=== PATIENT | male | born 1955 | race Caucasian/White ===

== ENCOUNTER → 2018-03-01 10:08 | Outpatient (CLI) | payer BC, SELFPAY ==
--- NOTE | 2018-03-01 10:09 | DI.REPORT_ITS ---
SYMPTOM/DIAGNOSIS: RT WRIST PAIN, MOST PAINFUL AT DISTAL ULNA. RT WRIST SPRAIN S63.501A RIGHT WRIST: Three views. No priors. No bone or joint abnormality is identified. There does appear to be some soft tissue swelling about the medial aspect of the wrist. No radiopaque foreign bodies are seen in the soft tissues. IMPRESSION: Mild soft tissue swelling. No acute fracture or dislocation.
== END ==
PROVIDERS: PCP Nurse Practitioner; Visit Provider Family Medicine
DX: S63.501A Unspecified sprain of right wrist, initial encounter (principal)
CPT/HCPCS: 73110

== ENCOUNTER 2018-04-16 13:49 | Outpatient (CLI) | payer BC, SELFPAY ==
--- NOTE | 2018-04-16 11:10 | DI.RAD_ITS ---
SYMPTOMS/DIAGNOSIS: ONE MONTH OF WRIST PAIN, SPRAIN OF RIGHT WRIST, S63.766A RECHECK FOR SUBTLE FRACTURE RIGHT WRIST: Multiple views. No evidence of an acute or healing fracture or dislocation is identified. The soft tissues are unremarkable. IMPRESSION: No acute abnormality.
== END 2018-04-16 14:09 ==
PROVIDERS: PCP Nurse Practitioner; Visit Provider Family Medicine
DX: M25.531 Pain in right wrist (principal); S63.501D Unspecified sprain of right wrist, subsequent encounter
CPT/HCPCS: 73110

== ENCOUNTER 2018-06-26 12:22 | Day surgery (SDC) | payer BC, SELFPAY ==
[2018-06-26 12:34] VITALS: BP 124/78; PULSE 66; RESP 20; TEMP 36.8; O2SAT 20
[2018-06-26] MEDS: Lactated Ringers 1,000 ML 80 ML IV (12:57)
--- NOTE | 2018-06-26 14:16 | W.PM.DSUDISC ---
Discharge Plan Disposition Patient Disposition: HOME Condition: Good Discharge Details Reason For Visit: surgery L wrist Attending Provider: Estiven Baker Primary Care Provider: Joel Aguero Home Meds and New Rx's Prescriptions: New hydrocodone-acetaminophen 5-325 mg tablet 1 tab PO Q6H PRN (Reason: pain) Qty: 10 RF: 0 Continue loekkca-smfwzroeihstc-klwgfgsn [Excedrin Migraine] 1 EACH tablet 2 tab PO PRN PRNRF: 0 Discharge Instructions Additional Instructions: Elevate R hand above heart level as much as possible overnite tonite. Wiggle fingers R hand 10 times/hour when awake to prevent swelling. Keep splint and dressings dry and intact. Use R hand as much as discomfort allows. Follow up in 's office in one week. Stand Alone Forms: DSU Post op Instructions, Adrienne Lewis (DSU) Referrals: Estiven Baker MD [ [facility] STAFF PHYSICIAN] - (f/u in one week.) Equipment/Supplies: Splint Activity:: Activity as Tolerated Remove Dressings/Wound Care:: Do Not Remove Shower/Bathe:: Cover Diet:: As Tolerated Discharge Orders Discharge Orders: Discharge Order (Routine); Ordered 06/26/18 Ordered By: Estiven Baker DS: Diagnosis Discharge Diagnosis (1) Subluxation/dislocation ECU (extensor carpi ulnaris) tendon: Status: Acute
--- NOTE | 2018-06-26 14:20 | PDOC.DSDIS_ITS ---
Discharge Plan Disposition Patient Disposition: HOME Condition: Good Discharge Details Reason For Visit: surgery L wrist Attending Provider: Estiven Baker Primary Care Provider: Joel Aguero Home Meds and New Rx's Prescriptions: New hydrocodone-acetaminophen 5-325 mg tablet 1 tab PO Q6H PRN (Reason: pain) Qty: 10 RF: 0 Continue cuqswnp-xomilnnyzgybr-fclfrnnt [Excedrin Migraine] 1 EACH tablet 2 tab PO PRN PRNRF: 0 Discharge Instructions Additional Instructions: Elevate R hand above heart level as much as possible overnite tonite. Wiggle fingers R hand 10 times/hour when awake to prevent swelling. Keep splint and dressings dry and intact. Use R hand as much as discomfort allows. Follow up in 's office in one week. Stand Alone Forms: DSU Post op Instructions, Adrienne Lewis ([facility]U) Referrals: Estiven Baker MD [ [facility] STAFF PHYSICIAN] - (f/u in one week.) Equipment/Supplies: Splint Activity:: Activity as Tolerated Remove Dressings/Wound Care:: Do Not Remove Shower/Bathe:: Cover Diet:: As Tolerated Discharge Orders Discharge Orders: Discharge Order (Routine); Ordered 06/26/18 Ordered By: Estiven Baker DS: Diagnosis Discharge Diagnosis (1) Subluxation/dislocation ECU (extensor carpi ulnaris) tendon: Status: Acute
[2018-06-26 14:44] VITALS: BP 129/76; PULSE 57; RESP 18; TEMP 36.3; O2SAT 100
--- NOTE | 2018-06-27 17:09 | ROE_ITS ---
DATE OF PROCEDURE: June 26, 2018 PREOPERATIVE DIAGNOSIS: Tenosynovitis extensor carpi ulnaris tendon at the right wrist. POSTOPERATIVE DIAGNOSIS: Same. PROCEDURE: Tendon sheath incision right wrist for extensor carpi ulnaris tenosynovitis and a synovec guadalupe of the tendon as well. SURGEON: Estiven Baker M.D. ANESTHESIA: MAC accompanied by local infiltration. INDICATIONS: This is a 62-year-old white male who has had some ulnar right wrist pain following trau ma several months ago. The pain has not responded to splinting. He is a right dominant individual s o it is interfering with his activities. Physical examination was consistent with tenosynovitis of t he extensor carpi ulnaris tendon at the distal ulna. Release of the sheath of the extensor carpi uln sukumar was recommended to alleviate his symptoms. The risks and complications of the procedure were ex plained to the patient in detail preoperatively. The patient was originally scheduled for a [place] blo ck, however because a good IV was not able to be obtained in the operative extremity the anesthesia w as switched to MAC along with local infiltration by me. PROCEDURE: The patient was placed supine on the operating table. MAC anesthesia was administered. The right hand, wrist, and forearm were prepped and draped free in the usual sterile fashion. I infi ltrated over the sheath of the extensor carpi ulnaris tendon at the wrist with 0.5% Marcaine with epi nephrine solution. I then made a longitudinal incision directly over the course of the tendon; it wa s about 3-1/2 inches in length. The incision was carried down to the extensor carpi ulnaris tendon. The tendon was found to be covered with this extra synovium that was quite boggy in appearance. The synovium was also hyperemic. I then made a longitudinal incision in the extensor carpi ulnaris lyles th, freeing the tendon. I then excised the excess synovium with a rongeur, leaving healthy tendon be hind. I infiltrated the wound margins down to the sheath of the extensor carpi ulnaris with 0.5% Marcaine w ith epinephrine solution. The wound was irrigated with Betadine and saline solution. The skin and s ubcu were approximated with interrupted #4-0 nylon sutures. The wound was dressed with Xeroform gauz e, sterile gauze 4x4s, an ABD pad, wrapped with a Kerlix bandage, and then wrapped with an Jhony bandag e. He was placed in a commercial cock-up wrist splint on the right. The patient tolerated the proce dure well. His anesthesia was reversed without complication. He was discharged to the Recovery Room in good condition. The patient was later discharged home from the Day Surgery Unit when fully recovered from his MAC ane sthesia. He was given instructions to keep his splint and dressings dry and intact until he follows up in my office in one week. He may use his right hand as much as discomfort allows. He is encourag ed to wiggle his fingers 10 times an hour while awake to prevent swelling. He is given a prescriptio n for breakthrough pain of hydrocodone/APAP 5 mg/325 mg, 1 tablet every 6 hours as needed. He is enc ouraged to take Celebrex 200 mg p.o. b.i.d. for 10 days for inflammation and swelling.
== END 2018-06-26 15:05 | disposition home or self-care (01) ==
PROVIDERS: PCP Family Medicine; Visit Provider Orthopaedic Surgery
PROC: (CPT 25000; principal; 2018-06-26 13:45)
DX: S63.511A Sprain of carpal joint of right wrist, initial encounter (principal); X58.XXXA Exposure to other specified factors, initial encounter; M67.231 Synovial hypertrophy, not elsewhere classified, right forearm
CPT/HCPCS: 25000; J0690; L3908

== ENCOUNTER 2019-05-20 10:23 | Outpatient (CLI) | payer BC, SELFPAY ==
[2019-05-20 12:09] LABS: ALT 43 U/L (16-63); AST 20 U/L (15-37); Albumin 3.8 g/dL (3.4-5.0); Alkaline Phosphatase 73 U/L (46-116); Anion Gap 7.9 mmol/L (3-11); BUN 19 mg/dL (7-18); Bilirubin, Total 0.7 mg/dL (0.2-1.0); CO2 29.1 mmol/L (21.0-32.0); CREATININE 0.85 mg/dL (0.70-1.30); Calculated LDL 138 mg/dL; Chloride 104 mmol/L (98-107); Cholesterol 232 mg/dL (50-200); Glucose 111 mg/dL (70-100); HDL Cholesterol 59 mg/dL (40-60); Potassium 3.9 mmol/L (3.5-5.1); Sodium 141 mmol/L (136-145); Triglyceride 175 mg/dL (30-150)
== END 2019-05-20 10:43 ==
PROVIDERS: PCP Nurse Practitioner; Visit Provider Family Medicine
DX: Z13.220 Encounter for screening for lipoid disorders (principal); Z13.228 Encounter for screening for other metabolic disorders
CPT/HCPCS: 36415; 80053; 80061

== ENCOUNTER 2019-07-30 09:38 | Outpatient (CLI) | payer BC, SELFPAY ==
--- NOTE | 2019-07-30 09:45 | DI.RAD_ITS ---
EXAM: XR SHOULDER LT COMPLETE 2+V INDICATION: L shoulder pain. COMPARISON: No exams were available for comparison TECHNIQUE: 2D digital imaging was performed. FINDINGS: The AC joint shows minimal spurring. Mild spurring is seen at the anteroinferior glenoid. Humeral h ead is normally positioned. IMPRESSION: Mild degenerative changes.
== END 2019-07-30 09:58 ==
PROVIDERS: PCP Nurse Practitioner; Visit Provider Physician Assistant
DX: M25.512 Pain in left shoulder (principal); M19.012 Primary osteoarthritis, left shoulder
CPT/HCPCS: 73030

== ENCOUNTER 2019-10-30 11:39 | Outpatient (CLI) | payer BC, SELFPAY ==
[2019-11-02 15:52] LABS: SARS-CoV-2 RNA Undetected (Undetected); SARS-CoV-2 Specimen Source Nasopharynx
== END 2019-10-30 11:59 ==
PROVIDERS: PCP Nurse Practitioner; Visit Provider Nurse Practitioner
DX: Z11.59 Encounter for screening for other viral diseases (principal)
CPT/HCPCS: U0003

== ENCOUNTER 2019-12-22 21:42 | Emergency (ER) | payer BC, SELFPAY ==
[2019-12-22 21:48] VITALS: BP 131/80; PULSE 67; RESP 16; TEMP 36.8; O2SAT 96
[2019-12-22] MEDS: Balanced Salt Solution 15 ML BTL OP (21:58)
--- NOTE | 2019-12-22 21:59 | W.ED.GENAD ---
Discharge Plan Disposition Patient Disposition: HOME Condition: Stable Discharge Details Chief Complaint: EyeProblem Clinical Impression: Abrasion, corneal Primary Care Provider: Angelika Kim ED Provider: Last Brunner Home Meds and New Rx's Prescriptions: Continued ibuprofen 200 mg tablet 400 mg PO Q6H PRNRF: 0 Excedrin Migraine 1 EACH tablet 2 tab PO PRN PRNRF: 0 Discharge Instructions Instructions: Corneal Abrasion (ED) Additional Instructions: follow up with [facility] this week return to the emergency department if you have severe worsening pain or vision changes. Medical Decision Making 64 yo male comes in with feeling as though there is a foreign body on surface of left eye. Denies any known trauma to the eye but was doing work on his porch so thinks possibly something from that may have gone in his eye. Denie fevers, vision changes. vision ins 20/30 in the left and 20/25 in the right. no periorbital swelling, no conjunctival injection, PERRL, eomi, immediate relief of discomfort with topical tetracaine, no foreign body seen evenon eye lid flip. Does have small 1mm corneal abrasion on the left upper conjunctiva. Will start him on antibiotic drops and have him f/u with [facility] return precautions given Differential Diagnosis Differential Diagnosis: conjunctivitis, FB, corneal abrasion HPI General Mode of arrival: ambulatory. Date/Time Provider Initiated Documentation: 12/22/19 21:43. Limitations to Documentation: no limitations. Information obtained by: patient. History of Present Illness 64 year old M presents to the emergency department with the chief complaint of left eye discomfort, described as mild, and is localized to the eyes. Patient started experiencing this hour(s) (4) and it has been constant. No relieving factors improve symptom(s), No exacerbating factors reported . Patient did receive the following treatments prior to arrival, none Related Data Home Medications Medication Instructions Recorded Confirmed Excedrin Migraine 2 tab PO PRN PRN 06/23/16 12/22/19 ibuprofen 200 mg tablet 400 mg PO Q6H PRN tab 07/30/19 12/22/19 Allergies Allergy/AdvReac Type Severity Reaction Status Date / Time peanut Allergy Severe Anaphylaxsi Verified 12/22/19 21:51 s tree nut Allergy Intermediate GI upset Verified 12/22/19 21:51 clarithromycin [From Biaxin] Allergy Unknown Skin Rash Verified 12/22/19 21:51 General Stated Complaint: EyeProblem EDISON: 4 Review of Systems All systems reviewed & are unremarkable except as noted in HPI and below Constitutional Constitutional: Denies chills, Denies fever(s) and Denies weakness Cardiovascular Cardiovascular: Denies chest pain and Denies dyspnea Respiratory Respiratory: Denies cough and Denies dyspnea Gastrointestinal Gastrointestinal: Denies abdominal pain, Denies nausea and Denies vomiting Musculoskeletal Musculoskeletal: Denies joint swelling Neurologic Neurologic: Denies weakness Psychiatric Psychiatric: Denies depression PFSH Family History Mother , AGW 71 Essential hypertension Personal history of malignant neoplasm Breast CA, Hyperlipidemia Father , AGE 81 Alcohol abuse Personal history of malignant neoplasm Prostate CA, Bladder CA Mental disorder Depression Grandfather Diabetes Grandmother Personal history of malignant neoplasm Breast CA Social History (Updated 06/10/19 @ 08:18 by Neeta Calloway RN) Smoking/Tobacco Use Status: Never Alcohol Intake: never Drug use: Never Substance use type: does not use Household members: spouse and children Housing: house Number of Children: 2 Communication Needs: Corrective Lenses 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 Current gender identity: male Other: SON 1995, DAUGHTER 2001 What type of physical activity do you participate in: walking Frequency: daily Special keeley needs: No Seatbelt use: always Drive intox or ride w/intox armor reconnaissance vehicle driver: No Working smoke detector in home: Yes Carbon monox detector in home: Yes Do you feel safe at home: Yes Do you feel safe in your relationship?: Yes Exam Const General: no acute distress Orientation: alert HENMT Head: normal to inspection Ears: external ears normal General nose exam: external nose normal Mouth: moist mucous membranes Eyes General: appearance normal, both eyes and all related structures Neck Neck: normal visual inspection Resp Effort & Inspection: normal respiratory effort and able to speak in complete sentences Cardio Rate: regular rate Skin General skin exam: no rashes or lesions noted Neuro General: patient alert and patient oriented x3 Extrem General: normal to inspection Psych Mental Status: mental status grossly normal Course Vital Signs Vital signs: Vital Signs Temperature 36.8 C 12/22/19 21:48 Pulse 67 12/22/19 21:48 Respiratory Rate 16 12/22/19 21:48 Blood Pressure 131/80 12/22/19 21:48 Pulse Oximetry 96 12/22/19 21:48 Temperature 36.8 C 12/22/19 21:48 Temperature Source Oral 12/22/19 21:48 Pulse 67 12/22/19 21:48 Respiratory Rate 16 12/22/19 21:48 Respiratory Effort Non-Labored 12/22/19 21:52 Blood Pressure 131/80 12/22/19 21:48 Pulse Oximetry 96 12/22/19 21:48 Oxygen Delivery Method Room Air 12/22/19 21:48 Oxygen Flow Rate 0 12/22/19 21:48
[2019-12-22] MEDS: Fluorescein STRIPS 100/BOX 1 MG (22:00)
[2019-12-22] MEDS: Tetracaine 0.5% 4 ML BTL OP (22:00)
[2019-12-22] MEDS: Ciprofloxacin 0.3% 2.5 ML BTL OS (22:29)
--- NOTE | 2019-12-23 06:21 | NUR.NOTE ---
referral faxed to [facility] for F/U Nursing Note:
== END 2019-12-22 22:35 | disposition home or self-care (01) ==
PROVIDERS: Emergency Provider Emergency Medicine; PCP Nurse Practitioner
DX: S05.02XA Injury of conjunctiva and corneal abrasion without foreign body, left eye, initial encounter (principal); X58.XXXA Exposure to other specified factors, initial encounter
CPT/HCPCS: 99283

== ENCOUNTER 2020-04-30 03:04 | Outpatient (CLI) | payer BC, SELFPAY ==
[2020-05-01 20:25] LABS: COVID-19 RT-PCR Result NEGATIVE (Negative)
== END 2020-04-30 03:24 ==
PROVIDERS: PCP Nurse Practitioner; Visit Provider Otolaryngology
DX: Z11.59 Encounter for screening for other viral diseases (principal); Z01.818 Encounter for other preprocedural examination
CPT/HCPCS: U0003

== ENCOUNTER 2020-05-06 07:12 | Outpatient (CLI) | payer BC, SELFPAY ==
[2020-05-07 17:48] LABS: COVID-19 RT-PCR Result NEGATIVE (Negative)
== END 2020-05-06 07:32 ==
PROVIDERS: PCP Nurse Practitioner; Visit Provider Otolaryngology
DX: Z11.59 Encounter for screening for other viral diseases (principal); Z01.818 Encounter for other preprocedural examination
CPT/HCPCS: U0003

== ENCOUNTER 2020-05-14 07:30 | Outpatient (CLI) | payer BC, SELFPAY ==
[2020-05-15 12:45] LABS: COVID-19 RT-PCR Result NEGATIVE (Negative)
== END 2020-05-14 07:50 ==
PROVIDERS: PCP Nurse Practitioner; Visit Provider Otolaryngology
DX: Z01.812 Encounter for preprocedural laboratory examination (principal)
CPT/HCPCS: U0003

== ENCOUNTER 2020-07-06 02:36 | Outpatient (CLI) | payer BC, SELFPAY ==
[2020-07-06 08:32] LABS: HCT 41.9 % (40.0-50.0); HGB 14.3 g/dL (13.5-17.5); MCH 33.2 pg (27.0-33.0); MCHC 34.1 % (32.0-36.0); MCV 97.2 fL (80-95); MPV 9.5 fL (8.0-11.0); Platelet Count 207 10^3/uL (130-400); RBC 4.31 10^6/uL (4.36-5.78); RDW 11.9 % (11.8-14.1); RDW-SD 43.3 fL; WBC 5.26 10^3/uL (4.4-10.8)
[2020-07-06 09:47] LABS: ALT 29 U/L (16-63); AST 19 U/L (15-37); Albumin 3.7 g/dL (3.4-5.0); Alkaline Phosphatase 72 U/L (46-116); Anion Gap 7.7 mmol/L (3-11); BUN 19 mg/dL (7-18); Bilirubin, Total 0.6 mg/dL (0.2-1.0); CO2 28.3 mmol/L (21.0-32.0); CREATININE 0.99 mg/dL (0.70-1.30); Calculated LDL 146 mg/dL (<100); Chloride 108 mmol/L (98-107); Cholesterol 220 mg/dL (<200); Glucose 98 mg/dL (74-106); HDL Cholesterol 62 mg/dL (40-60); Sodium 144 mmol/L (136-145); Total Protein 6.8 g/dL (6.4-8.2); Triglyceride 62 mg/dL (<150)
== END 2020-07-06 02:56 ==
PROVIDERS: PCP Nurse Practitioner; Visit Provider Nurse Practitioner
DX: Z00.00 Encounter for general adult medical examination without abnormal findings (principal); Z13.220 Encounter for screening for lipoid disorders
CPT/HCPCS: 36415; 80053; 80061; 85027

== ENCOUNTER 2021-06-22 09:15 | Outpatient (CLI) | payer BC, SELFPAY ==
--- NOTE | 2021-06-22 09:30 | RT.EKG_ITS ---
APPROVED REPORT Exam: Resting ECG Reason for Exam: Medication monitoring Patient Location: O HR:53 bpm ECG Measurements Heart Rate 53 AXIS WA 163 P 37 QRSd 100 QRS 66 QT 421 T 30 QTc 397 Conclusion Sinus bradycardia...rate< 60
== END 2021-06-22 09:16 | disposition home or self-care (01) ==
PROVIDERS: PCP Nurse Practitioner; Visit Provider Nurse Practitioner
DX: Z51.81 Encounter for therapeutic drug level monitoring (principal); Z79.899 Other long term (current) drug therapy
CPT/HCPCS: 93010

== ENCOUNTER 2021-06-24 03:54 | Outpatient (CLI) | payer BC, SELFPAY ==
[2021-06-24 09:48] LABS: HCT 46.4 % (40.0-50.0); HGB 15.2 g/dL (13.5-17.5); MCH 32.8 pg (27.0-33.0); MCHC 32.8 % (32.0-36.0); MCV 100.2 fL (80-95); MPV 9.9 fL (8.0-11.0); Platelet Count 216 10^3/uL (130-400); RBC 4.63 10^6/uL (4.36-5.78); RDW 11.8 % (11.8-14.1); RDW-SD 43.8 fL; WBC 4.63 10^3/uL (4.4-10.8)
[2021-06-24 11:33] LABS: ALT 37 U/L (16-63); AST 22 U/L (15-37); Alkaline Phosphatase 76 U/L (46-116); Anion Gap 7.1 mmol/L (3-11); BUN 23 mg/dL (7-18); Bilirubin, Total 0.7 mg/dL (0.2-1.0); CO2 29.9 mmol/L (21.0-32.0); CREATININE 0.8 mg/dL (0.70-1.30); Calculated LDL 174 mg/dL (<100); Chloride 102 mmol/L (98-107); Cholesterol 264 mg/dL (<200); Glucose 98 mg/dL (74-106); HDL Cholesterol 68 mg/dL (40-60); Potassium 4.4 mmol/L (3.5-5.1); Sodium 139 mmol/L (136-145); Total Protein 7.2 g/dL (6.4-8.2); Triglyceride 113 mg/dL (<150)
== END 2021-06-24 03:55 | disposition home or self-care (01) ==
LOC: LBO 03:54
PROVIDERS: PCP Nurse Practitioner; Visit Provider Nurse Practitioner
DX: N52.9 Male erectile dysfunction, unspecified (principal); Z00.00 Encounter for general adult medical examination without abnormal findings; Z13.220 Encounter for screening for lipoid disorders
CPT/HCPCS: 36415; 80053; 80061; 85027

== ENCOUNTER → 2022-02-10 00:38 | Outpatient (CLI) | payer BC, SELFPAY ==
--- NOTE | 2022-02-10 13:33 | DI.RAD_ITS ---
Exam(s) XR KNEE LT 4V+ EXAM: XR KNEE LT 4V+ CLINICAL HISTORY: New onset knee pain,m25.561. TECHNIQUE: 2D digital imaging was performed. Four views. COMPARISON: No exams were available for comparison FINDINGS: BONES: No acute fracture is present. No bony destructive lesion is seen. JOINTS: Joint spaces are well maintained. There is minimal periarticular spurring the knee is normal ly aligned. No joint effusion is seen. SOFT TISSUE: Normal. IMPRESSION: Minimal degenerative changes.. DATA REPOSITORY: RADIATION DOSE DELIVERED:
== END ==
PROVIDERS: PCP Nurse Practitioner; Visit Provider Family Medicine
DX: M25.561 Pain in right knee (principal)
CPT/HCPCS: 73564

== ENCOUNTER 2022-07-05 03:08 | Outpatient (CLI) | payer BC, SELFPAY ==
[2022-07-05 09:04] LABS: ALT 20 U/L (16-63); AST 20 U/L (15-37); Albumin 3.8 g/dL (3.4-5.0); Alkaline Phosphatase 78 U/L (46-116); Anion Gap 6.8 mmol/L (3-11); BUN 28 mg/dL (7-18); Bilirubin, Total 0.8 mg/dL (0.2-1.0); CO2 29.2 mmol/L (21.0-32.0); CREATININE 0.8 mg/dL (0.70-1.30); Calculated LDL 126 mg/dL (<100); Chloride 105 mmol/L (98-107); Cholesterol 210 mg/dL (<200); Glucose 100 mg/dL (74-106); HDL Cholesterol 72 mg/dL (40-60); Potassium 4.2 mmol/L (3.5-5.1); Sodium 141 mmol/L (136-145); Total Protein 7.3 g/dL (6.4-8.2); Triglyceride 61 mg/dL (<150)
[2022-07-05 17:48] LABS: PSA, Screening 1.7 ng/mL (<=4.5)
[2022-07-06 10:00] LABS: Hepatitis C Ab w Rflx HCV PCR Negative (Negative)
== END 2022-07-05 03:09 | disposition home or self-care (01) ==
PROVIDERS: PCP Nurse Practitioner; Visit Provider Nurse Practitioner
DX: E78.5 Hyperlipidemia, unspecified (principal); Z11.59 Encounter for screening for other viral diseases; Z80.42 Family history of malignant neoplasm of prostate; Z12.5 Encounter for screening for malignant neoplasm of prostate
CPT/HCPCS: 36415; 80053; 80061; 84153; 86803

== ENCOUNTER 2023-01-18 11:08 | Outpatient (CLI) | payer BC, SELFPAY ==
[2023-01-19 10:01] LABS: Lyme Ab w Rflx to Lyme Confirm Negative (Negative)
[2023-01-21 17:59] LABS: Anaplasma phagocytophilum Negative (Negative); B. miyamotoi PCR Negative (Negative); Babesia divergens/MO-1 Negative (Negative); Babesia duncani Negative (Negative); Babesia microti Negative (Negative); Ehrlichia chaffeensis Negative (Negative); Ehrlichia ewingii/canis Negative (Negative); Ehrlichia muris eauclairensis Negative (Negative)
== END 2023-01-18 11:09 | disposition home or self-care (01) ==
LOC: LBO 11:09
PROVIDERS: PCP Nurse Practitioner; Visit Provider Nurse Practitioner Family
DX: S80.861A Insect bite (nonvenomous), right lower leg, initial encounter (principal); W57.XXXA Bitten or stung by nonvenomous insect and other nonvenomous arthropods, initial encounter
CPT/HCPCS: 36415; 87798; 86618

== ENCOUNTER 2023-07-03 12:52 | Outpatient (CLI) | payer BC, SELFPAY ==
[2023-07-03 10:19] LABS: Calculated LDL 140 mg/dL (<100); Cholesterol 222 mg/dL (<200); HDL Cholesterol 71 mg/dL (40-60); Triglyceride 59 mg/dL (<150)
== END 2023-07-03 12:53 | disposition home or self-care (01) ==
LOC: LBO 12:53
PROVIDERS: PCP Nurse Practitioner; Visit Provider Nurse Practitioner
DX: E78.5 Hyperlipidemia, unspecified (principal); Z12.5 Encounter for screening for malignant neoplasm of prostate; Z80.42 Family history of malignant neoplasm of prostate
CPT/HCPCS: 36415; 80061; 84153

== ENCOUNTER 2023-10-01 07:01 | Emergency (ER) | payer BC, SELFPAY ==
[2023-10-01 07:04] VITALS: BP 148/66; PULSE 101; RESP 20; TEMP 36.9; O2SAT 96
--- NOTE | 2023-10-01 07:15 | DI.RAD_ITS ---
Exam(s) XR PORTABLE CHEST AP EXAM: XR PORTABLE CHEST AP CLINICAL HISTORY: sob, cough, eval for aspiration. TECHNIQUE: 2D digital imaging was performed. COMPARISON: No exams were available for comparison FINDINGS: Single AP portable view. Heart size is upper normal. The mediastinum is not widened. Lungs are clear. No infiltrates nor obvious pleural effusions. IMPRESSION: No acute pulmonary findings on this single AP portable view of the chest. DATA REPOSITORY: RADIATION DOSE DELIVERED:
[2023-10-01 08:25] LABS: Abs Immature Grans 0.03 10^3/uL (0.0-0.06); Absolute Basophil Count 0.02 10^3/uL (0.0-0.2); Absolute Eosinophil Count 0.01 10^3/uL (0.0-0.7); Absolute Lymphocyte Count 0.76 10^3/uL (1.2-3.4); Absolute Monocyte Count 0.81 10^3/uL (0.1-0.8); Absolute Neutrophil Count 5.89 10^3/uL (1.2-6.7); Basophils % 0.3; Eosinophils % 0.1; HCT 43.3 % (40.0-50.0); HGB 15.2 g/dL (13.5-17.5); Immature Grans % 0.4; Lymphocytes % 10.1; MCH 33.5 pg (27.0-33.0); MCHC 35.1 % (32.0-36.0); MCV 95 fL (80-95); MPV 9.3 fL (8.0-11.0); Monocytes % 10.8; Neutrophils % 78.3; Platelet Count 171 10^3/uL (130-400); RBC 4.54 10^6/uL (4.36-5.78); RDW 11.8 % (11.8-14.1); RDW-SD 41.4 fL; WBC 7.52 10^3/uL (4.4-10.8)
--- NOTE | 2023-10-01 08:30 | ED.GENADUL_ITS ---
Discharge Plan Disposition Patient Disposition: Home Condition: Good Discharge Details Clinical Impression: Bronchitis Primary Care Provider: Angelika Kim ED Provider: Bunny Sanchez Home Meds and New Rx's Prescriptions: New amoxicillin-pot clavulanate 875-125 mg tablet 1 tab PO BID Qty: 20 0RF No Action cholecalciferol (vitamin D3) 25 mcg (1,000 unit) capsule 25 mcg PO DAILY multivitamin Tablet 1 tab PO DAILY sildenafil 50 mg tablet 50 mg PO DAILY PRN (Reason: sexual activity) Qty: 10 5RF Rx Instructions: administer 30 minutes to 4 hours before activity. Trial 1/2 tab first. ibuprofen 200 mg tablet 400 mg PO Q6H PRN Excedrin Migraine 1 EACH tablet 2 tab PO PRN PRN Discharge Instructions Instructions: Acute Bronchitis (ED) Additional Instructions: At this time your imaging has returned unremarkable. No signs of large pneumonia or other significant abnormality. I am concerned that there may be an infection in the bronchi of your lungs. Please take the antibiotic as directed. Please take the inhaler that you have been prescribed, 2 puffs every 12 hours for the next 1 to 2 weeks. We have placed a referral with pulmonology, please follow-up with them if your symptoms persist. If you notice any worsening of your symptoms, or any new symptoms such as vomiting, diarrhea, fever, chills, shortness of breath, chest pain, numbness, weakness, or fainting , please return immediately to the emergency department for reevaluation. Please follow up with your primary care provider as soon as possible for reassessment and reevaluation. As always, it was a pleasure participating in your medical care today. Referrals: Angelika Kim NP [Primary Care Provider] - [facility] General Date/Time Provider Initiated Documentation: 10/01/23 07:02 . HPI Narrative: 67-year-old male with past medical history of chronic vocal cord dysfunction, presents today for evaluation of cough. Patient states that he chronically has vocal cord dysfunction which is led to occasional coughing fits while eating, he does not remember any particular episodes that occurred of severe coughing fits, but he has noticed since Sunday for the last 4 days that he has had a mild to moderate cough that is worsening. A small amount of blood speckling is noted. He admits to dark mucus expectorant. He denies fever or chills. He denies chest pain or shortness of breath otherwise. T patient is not currently smoking. He is a former smoker. He denies any other complaints at this time. No other modifying factors. Related Data Home Medications Medication Instructions Recorded Confirmed xzbsagt-rurxsidcctyov-cjrjzcku 250 2 tab PO PRN PRN 06/23/16 10/01/23 mg-250 mg-65 mg tablet (Excedrin Migraine) ibuprofen 200 mg tablet 400 mg PO Q6H PRN 07/30/19 10/01/23 cholecalciferol (vitamin D3) 25 25 mcg PO DAILY 06/14/20 10/01/23 mcg (1,000 unit) capsule multivitamin 1 tab PO DAILY 06/14/20 10/01/23 sildenafil 50 mg tablet 50 mg PO DAILY PRN sexual activity 07/03/23 10/01/23 #10 tabs amoxicillin 875 mg-potassium 1 tab PO BID #20 tabs 10/01/23 clavulanate 125 mg tablet Previous Rx's Medication Instructions Recorded sildenafil 50 mg tablet 50 mg PO DAILY PRN sexual activity 07/03/23 #10 tabs amoxicillin 875 mg-potassium 1 tab PO BID #20 tabs 10/01/23 clavulanate 125 mg tablet Allergies Allergy/AdvReac Type Severity Reaction Status Date / Time peanut Allergy Severe Anaphylaxsi Verified 10/01/23 07:07 s tree nut Allergy Intermediate GI upset Verified 10/01/23 07:07 clarithromycin [From Biaxin] Allergy Unknown Skin Rash Verified 10/01/23 07:07 General Stated Complaint: RespSymp EDISON: 3 Review of Systems All systems reviewed & are unremarkable except as noted in HPI and below Exam Narrative Exam Narrative: 1.Const: Well-nourished, Well-developed, appearing stated age 2.Eyes: PERRL, no conjunctival injection, and symmetrical lids. 3.ENT: Atraumatic external nose and ears. Moist MM. Neck: Symmetric, trachea midline, No thyromegaly. 4.CVS: +S1/S2, No murmurs or gallops. Peripheral pulses 2+ and equal in all extremities. Brisk capillary refill in all extremities. 5.RESP: Unlabored respiratory effort. Small shallow breaths in general. I was not able to auscultate any wheezes rales or rhonchi. 6.GI: Soft, Nontender/Nondistended, No hepatosplenomegaly. No guarding or rebound. 7.MSK: Normocephalic/Atraumatic, Extremities w/o deformity or ttp No cyanosis or clubbing, Normal movement of all extremities 8.Skin: Warm, Dry. No rashes or lesions. 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 Sensation grossly intact, no focal neurologic deficits. 10.Psych: (AAO) x3. Appropriate mood and affect Course Vital Signs Vital signs: Vital Signs Temperature 36.9 C 10/01/23 07:04 Pulse 101 H 10/01/23 07:04 Respiratory Rate 20 10/01/23 07:04 Blood Pressure 148/66 H 10/01/23 07:04 Pulse Oximetry 96 10/01/23 07:04 Temperature 36.9 C 10/01/23 07:04 Temperature Source Skin 10/01/23 07:04 Pulse 101 H 10/01/23 07:04 Respiratory Rate 20 10/01/23 07:04 Respiratory Effort Non-Labored 10/01/23 07:12 Respiratory Depth Shallow 10/01/23 07:12 Blood Pressure 148/66 H 10/01/23 07:04 Blood Pressure Position Sitting 10/01/23 07:04 Pulse Oximetry 96 10/01/23 07:04 Oxygen Delivery Method Room Air 10/01/23 07:04 Oxygen Flow Rate 0 10/01/23 07:04 Pain Level 3 10/01/23 07:04 Lab/Test Results Lab/Test Results: Laboratory Tests Range/Units 10/01/23 08:18 WBC (4.4-10.8) 10^3/uL 7.52 RBC (4.36-5.78) 10^6/uL 4.54 Hgb (13.5-17.5) g/dL 15.2 Hct (40.0-50.0) % 43.3 MCV (80-95) fL 95 MCH (27.0-33.0) pg 33.5 H MCHC (32.0-36.0) % 35.1 RDW (11.8-14.1) % 11.8 Plt Count (130-400) 10^3/uL 171 MPV (8.0-11.0) fL 9.3 Immature Gran % 0.4 Neutrophils % 78.3 Lymphocytes % 10.1 Monocytes % 10.8 Eosinophils % 0.1 Basophils % 0.3 Nucleated RBC % (0.0-0.3) % 0.0 Absolute Neutrophils (1.2-6.7) 10^3/uL 5.89 Absolute Lymphocytes (1.2-3.4) 10^3/uL 0.76 L Absolute Monocytes (0.1-0.8) 10^3/uL 0.81 H Absolute Eosinophils (0.0-0.7) 10^3/uL 0.01 Absolute Basophils (0.0-0.2) 10^3/uL 0.02 Medical Decision Making 67-year-old male with past medical history of chronic vocal cord dysfunction, presents today for evaluation of cough. Patient states that he chronically has vocal cord dysfunction which is led to occasional coughing fits while eating, he does not remember any particular episodes that occurred of severe coughing fits, but he has noticed since Sunday for the last 4 days that he has had a mild to moderate cough that is worsening. A small amount of blood speckling is noted. He admits to dark mucus expectorant. He denies fever or chills. He denies chest pain or shortness of breath otherwise. T patient is not currently smoking. He denies any other complaints at this time. No other modifying factors. Physical exam demonstrates well-appearing male, vital signs stable. Lungs are relatively clear however patient is not taking deep breaths. Concern for aspiration pneumonia, less likely tumor or mass. Will get a chest x-ray to screen to start, monitor closely and reassess. 8:36 AM X-ray negative for acute process, symptoms persist. We will advance to a CT scan/CTA to evaluate for signs of mass or pneumonia. 10:[address] scan negative for acute process, there is evidence of minimal atelectasis but no other significant abnormality. Concerned that there may be a mild bronchial component that could be causing the patient's symptoms. For coverage of community-acquired pneumonia versus aspiration will start the patient on Augmentin. We will give Symbicort inhaler for treatment of likely inflammation, we will place a referral out of concern for potential less likely bronchiectasis. Patient otherwise notably stable for discharge. Discussed red flags which return. I have extensively reviewed the treatment plan and discharge instructions with the patient. I have addressed all patient concerns at this time. The patient was made aware of what symptoms to monitor for that wo uld warrant a return to the emergency department. Discussed the plan with the patient, they demonstrate verbal understanding and agreement with our assessment and plan at this time. The documentation in this chart was dictated using [employer] dictation software. Please excuse any dictation errors. FINDINGS: Single AP portable view. Heart size is upper normal. The mediastinum is not widened. Lungs are clear. No infiltrates nor obvious pleural effusions. IMPRESSION: No acute pulmonary findings on this single AP portable view of the chest. FINDINGS: The examination is limited due to patient motion artifact. Tracheobronchial tree: Patent where visualized. Pulmonary parenchyma: There is atelectatic changes in the lung bases bilaterally. No focal consolidating infiltrates are seen. No pulmonary nodules are present. No architectural distortion. Pulmonary Arteries: No evidence of filling defect to suggest pulmonary emboli. Mediastinum and [place]: No dominant adenopathy or fluid collection. The esophagus is unremarkable. Visualized thyroid gland: Unremarkable. Pleura: No effusion or pneumothorax. Heart: The heart is not dilated. No coronary artery calcifications are seen. No pericardial effusion. Aorta: Thoracic aorta non-dilated. No evidence of dissection. Upper abdomen: Unremarkable. Soft tissues: Unremarkable. Bones: Within normal limits for the patient's age.Old compression deformities are seen at T3 and T8. IMPRESSION: 1. No evidence of pulmonary embolism, thoracic aortic dissection or aneurysm. 2. No focal consolidating infiltrates. Mild bilateral basilar atelectasis. 3. Findings were discussed with Dr. Sanchez at 9:58 a.m. on 10/01/2023. RADIATION DOSE DELIVERED: Total DLP Quality:SDOH Health Related Social Needs: No Data to Display PFSH All Active Problems (Updated 10/01/23 @ 10:15 by Bunny Sanchez, ) Bronchitis (Acute) Internal derangement of left knee (Acute) Posterior left knee pain (Acute) Erectile dysfunction (Acute) Screening for cholesterol level (Acute) Headache (Acute) Diarrhea (Acute) Tendonitis of left rotator cuff (Acute ~03/2019) Neoplasms (Acute) dorsum L hand (likely d/t trauma per [facility] [place] [facility] [employer]) Pt will f/u of if not resolved) Actinic keratoses (Acute) Left Cheek, 07/01/19 [facility] [place] - cryotherapy 07/24/18 [facility] [place] - excision of facial lesion planned Dysphonia (Acute) 04/29/19-[facility]; Woody Sheikh MD Unilateral vocal cord paralysis (Acute) 04[facility]29/[facility]. Woody Sheikh MD History of laryngoscopy (Acute) 04/29/19: [facility], Woody Sheikh MD Paralysis of vocal cords (Acute) 03/11/19 [facility] Otolaryngology Subluxation/dislocation ECU (extensor carpi ulnaris) tendon (Acute) Migraine with aura and without status migrainosus, not intractable (Chronic 05/08/16) Medical History Cheilitis (~09/2022) Actinic keratosis (~09/2022) 10/17/22 LN2 L cheek Sebaceous hyperplasia (~09/2022) Seborrheic dermatitis (~09/2022) Multiple nevi (~09/2022) Other seborrheic keratosis (~09/2022) Ocular migraine 04/28/22 [facility] Migraine aura, persistent, intractable Surgical History History of laryngoplasty [facility] 04/2019, true right fold injection 05/12/20 reinnervation procedure w/ repeat right vocal fold injection History of excision of lesion (~08/2019) [facility] [place] Bola[place] excision R cheek lesion excision pilonidal cyst (11/17/03) colonoscopy (04/04/05) Dental implant Colonoscopy - IV Sedation (06/23/16) Family History Mother , AGW 71 Essential hypertension Personal history of malignant neoplasm Breast CA, Hyperlipidemia Alcohol abuse Cancer Depression Father , AGE 81 Alcohol abuse Personal history of malignant neoplasm Prostate CA, Bladder CA Mental disorder Depression Cancer Grandfather Diabetes Grandmother Personal history of malignant neoplasm Breast CA Social History Smoking/Tobacco Use Status: Never Second Hand Exposure: No Smoking risk assessment performed?: Yes Alcohol Intake: never Drug use: Never Substance use type: does not use Adopted: No Caregiver/Support person: No Foster care: No Household members: spouse, family and children Housing: house Number of Children: 2 number of grandchildren: 0 Communication Needs: Corrective Lenses Education Level: college Details: Bachelor's degree Do you need help understanding health information?: Never 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 Pets and animals: Yes Pets and animals: cat(s), dog(s), farm animals and other Details: Alok Sexually active: Yes Do you think of yourself as: straight/heterosexual Current gender identity: male Other: SON 1995, DAUGHTER 2001 What is your relationship status?: How often do you talk on the phone with friends or family?: three or more times per week How often do you get together with friends or relatives?: once per week Do you belong to any clubs or organized social groups?: no Panel score (0-1 are the most socially isolated patients): 2 What type of physical activity do you participate in: walking Duration: 60-90 minutes/day Frequency: 5-6 times per week Special keeley needs: No Seatbelt use: always Helmet use: Yes Helmet use: sometimes Drive intox or ride w/intox driver sales: No Working smoke detector in home: Yes Fire extinguisher in home: Yes Carbon monox detector in home: Yes Do you feel safe at home: Yes Do you feel safe in your relationship?: Yes
[2023-10-01 08:40] LABS: ALT 45 U/L (16-63); AST 36 U/L (15-37); Albumin 3.4 g/dL (3.4-5.0); Alkaline Phosphatase 104 U/L (46-116); Anion Gap 9.9 mmol/L (3-11); BUN 21 mg/dL (7-18); Bilirubin, Total 0.7 mg/dL (0.2-1.0); CO2 27.1 mmol/L (21.0-32.0); CREATININE 0.9 mg/dL (0.70-1.30); Calcium 8.8 mg/dL (8.5-10.1); Chloride 102 mmol/L (98-107); Estimated GFR 92.45 (mL/min/1.73m2); Glucose 111 mg/dL (74-106); INR 1.1 (0.9-1.1); PTT Activated 29.8 sec (23.6-32.8); Potassium 4.1 mmol/L (3.5-5.1); Prothrombin Time 10.8 sec (9.1-11.1); Sodium 139 mmol/L (136-145); Total Protein 7.3 g/dL (6.4-8.2)
--- NOTE | 2023-10-01 08:49 | DI.VRAD_ITS ---
PROCEDURE INFORMATION: Exam: XR Chest Exam date and time: 10/01/2023 7:34 AM Age: 67 years old Clinical indication: Shortness of breath; Patient HX: SOB, cough, eval for aspiration TECHNIQUE: Imaging protocol: Radiologic exam of the chest. Views: 1 view. COMPARISON: No relevant prior studies are available for comparison. FINDINGS: Lungs: No focal consolidation seen. Pleural spaces: No large pleural effusion seen. Heart/Mediastinum: No cardiomegaly. Bones/joints: Grossly unremarkable. Gastrointestinal tract: Gaseous distension of bowel in the visualized abdomen. IMPRESSION: Nonacute findings as outlined above. Dictated and Authenticated by: Alanna Broussard MD. Ordering:ALEXIS Hollis MD
[2023-10-01 08:54] VITALS: BP 120/58; PULSE 79
[2023-10-01 08:59] VITALS: BP 120/58; PULSE 83; RESP 16; TEMP 37.2; O2SAT 94
[2023-10-01] MEDS: Omnipaque 350 MG/ML 100 ML BTL IJ (09:20)
[2023-10-01] MEDS: Normal Saline - Diluent 50 ML VIAL IJ (09:21)
--- NOTE | 2023-10-01 09:30 | DI.CT_ITS ---
Exam(s) CT CHEST PE CTA EXAM: CT CHEST PE CTA CLINICAL HISTORY: cough, aspiration risk. TECHNIQUE: Imaging Protocol: Axial CT angiography was performed with multi-slice acquisition and mu lti-planar and/or 3D reconstructions. CONTRAST MATERIAL: Intravenous: Omnipaque 350 contrast volume:100 mL COMPARISON: CR,XR XR PORTABLE CHEST AP from 10/01/2023 FINDINGS: The examination is limited due to patient motion artifact. Tracheobronchial tree: Patent where visualized. Pulmonary parenchyma: There is atelectatic changes in the lung bases bilaterally. No focal consolida ting infiltrates are seen. No pulmonary nodules are present. No architectural distortion. Pulmonary Arteries: No evidence of filling defect to suggest pulmonary emboli. Mediastinum and [place]: No dominant adenopathy or fluid collection. The esophagus is unremarkable. Visualized thyroid gland: Unremarkable. Pleura: No effusion or pneumothorax. Heart: The heart is not dilated. No coronary artery calcifications are seen. No pericardial effusion. Aorta: Thoracic aorta non-dilated. No evidence of dissection. Upper abdomen: Unremarkable. Soft tissues: Unremarkable. Bones: Within normal limits for the patient's age.Old compression deformities are seen at T3 and T8. IMPRESSION: 1. No evidence of pulmonary embolism, thoracic aortic dissection or aneurysm. 2. No focal consolidating infiltrates. Mild bilateral basilar atelectasis. 3. Findings were discussed with Dr. Sanchez at 9:58 a.m. on 10/01/2023. RADIATION DOSE DELIVERED: Total DLP DATA REPOSITORY: All CT scans at this facility are submitted to the National Radiology Data Registry (NRDR) Dose Index Registry (DIR) with the [employer] (ACR). RADIATION OPTIMIZATION: All CT scans at this facility use at least one of these dose optimization te chniques: automated exposure control; mA and/or kV adjustment per patient size (includes targeted exa ms where dose is matched to clinical indication); or iterative reconstruction.
--- NOTE | 2023-10-01 10:13 | NUR.NOTE ---
Referral Faxed to [facility] Pulmonology for Chronic purelent expectorant within one month Nursing Note:
[2023-10-01] MEDS: Amox. 875/Clav. 125, 2 TABS/BTL 1 TAB PO (10:26)
[2023-10-01] MEDS: Budesonide/Formoterol 160/4.5 6 GM 60 PUFF INH IH (10:32)
[2023-10-01 10:33] VITALS: BP 120/58; PULSE 83; RESP 16; TEMP 37.2; O2SAT 94
== END 2023-10-01 10:34 | disposition home or self-care (01) ==
PROVIDERS: Emergency Provider Student in an Organized Health Care Education/Training Program; PCP Nurse Practitioner
DX: J40 Bronchitis, not specified as acute or chronic (principal); J38.00 Paralysis of vocal cords and larynx, unspecified
CPT/HCPCS: 36415; 71275; 80053; 99285; 71045; 85025; 85610; 85730; 99284; J3490

== ENCOUNTER 2024-01-22 08:32 | Outpatient (CLI) | payer BC, SELFPAY ==
[2024-01-22 08:04] LABS: ESR 4 mm/hr (0-20)
[2024-01-23 10:59] LABS: Lyme Ab w Rflx to Lyme Confirm Negative (Negative)
[2024-01-25 12:59] LABS: Anaplasma phagocytophilum Negative (Negative); B. miyamotoi PCR Negative (Negative); Babesia divergens/MO-1 Negative (Negative); Babesia duncani Negative (Negative); Babesia microti Negative (Negative); Ehrlichia chaffeensis Negative (Negative); Ehrlichia ewingii/canis Negative (Negative); Ehrlichia muris eauclairensis Negative (Negative)
== END 2024-01-22 08:33 | disposition home or self-care (01) ==
LOC: LBO 08:35
PROVIDERS: PCP Nurse Practitioner; Visit Provider Nurse Practitioner
DX: W57.XXXA Bitten or stung by nonvenomous insect and other nonvenomous arthropods, initial encounter (principal); R51.9 Headache, unspecified
CPT/HCPCS: 36415; 85652; 87798; 86618

== ENCOUNTER 2024-12-12 11:31 | Outpatient (CLI) | payer BC, SELFPAY ==
[2024-12-12 12:05] LABS: ESR 2 mm/hr (0-20)
[2024-12-12 12:34] LABS: ALT 37 U/L (16-63); AST 23 U/L (15-37); Albumin 3.9 g/dL (3.4-5.0); Alkaline Phosphatase 82 U/L (46-116); Anion Gap 5.9 mmol/L (3-11); BUN 21 mg/dL (7-18); Bilirubin, Total 0.5 mg/dL (0.2-1.0); C-Reactive Protein < 0.50 mg/dL (<or=0.5); CO2 30.1 mmol/L (21.0-32.0); CREATININE 0.8 mg/dL (0.70-1.30); Calcium 9.5 mg/dL (8.5-10.1); Chloride 103 mmol/L (98-107); Estimated GFR 94.62 (mL/min/1.73m2); Glucose 105 mg/dL (74-106); Potassium 4.5 mmol/L (3.5-5.1); Sodium 139 mmol/L (136-145); Total Protein 7.4 g/dL (6.4-8.2)
[2024-12-15 09:16] LABS: Lyme Ab w Rflx to Lyme Confirm Negative (Negative)
[2024-12-16 12:33] LABS: Anaplasma phagocytophilum Negative (Negative); B. miyamotoi PCR Negative (Negative); Babesia divergens/MO-1 Negative (Negative); Babesia duncani Negative (Negative); Babesia microti Negative (Negative); Ehrlichia chaffeensis Negative (Negative); Ehrlichia ewingii/canis Negative (Negative); Ehrlichia muris eauclairensis Negative (Negative)
== END 2024-12-12 11:32 | disposition home or self-care (01) ==
LOC: LBO 11:31
PROVIDERS: PCP Nurse Practitioner Family; Visit Provider Nurse Practitioner Family
DX: Z11.9 Encounter for screening for infectious and parasitic diseases, unspecified (principal)
CPT/HCPCS: 36415; 80053; 85652; 87798; 86140; 86618

== ENCOUNTER 2025-01-22 08:41 | Outpatient (CLI) | payer BC, SELFPAY ==
--- NOTE | 2025-01-22 08:30 | DI.RAD_ITS ---
Exam(s) XR SHOULDER RT COMPLETE 2+V EXAM: XR SHOULDER RT COMPLETE 2+V CLINICAL HISTORY: recurrence of previous shoulder pain M25.511 PAIN RT SHOULDER A69.23. TECHNIQUE: 2D digital imaging was performed. COMPARISON: CR XR SHOULDER LT COMPLETE 2+V from 07/30/2019 FINDINGS: Five views No evidence of acute fracture or dislocation no abnormal soft tissue calcifications. Subacromial space is not diminished. There are no obvious degenerative changes in the glenohumeral joint. Minimal degenerative change in the AC joint. Bone density is normal and there are no osseous lesions evident. Coracoid process appears unremarkable. Clavicle appears unremarkable. IMPRESSION: No significant osseous findings in the right shoulder. DATA REPOSITORY: RADIATION DOSE DELIVERED:
== END 2025-01-22 09:01 ==
LOC: DI 08:41
PROVIDERS: PCP Nurse Practitioner; Visit Provider Family Medicine
DX: M25.511 Pain in right shoulder (principal); A69.23 Arthritis due to Lyme disease
CPT/HCPCS: 73030

== ENCOUNTER 2025-06-19 14:35 | Outpatient (REF) | payer BC, MEDICARE, SELFPAY | END 2025-06-19 14:36 | disposition home or self-care (01) | LOC: LBN 14:35 | PROVIDERS: PCP Nurse Practitioner; Visit Provider Physician Assistant | DX: J02.9 Acute pharyngitis, unspecified (principal) | CPT/HCPCS: 87070 ==